=== PATIENT | female | born 1990 | race Native Hawaiian/Other Pacific Islander ===

== ENCOUNTER 2017-12-13 14:20 | Emergency (ER) | payer OTHER ==
[2017-12-13 14:26] VITALS: BP 125/78; PULSE 93; RESP 16; TEMP 98.9; O2SAT 99
--- NOTE | 2017-12-13 15:07 | ED PDOC ---
HPI: Female Pain Time Seen by Provider: 12/13/17 14:47 Chief Complaint (Nursing): Female Genitourinary History Per: Patient, Family Onset/Duration Of Symptoms: Days (1) Current Symptoms Are (Timing): Still Present Severity: Mild Pain Scale Rating Of: 2 Quality Of Discomfort: Cramping Additional Complaint(s): Vaginal spotting assoc with lower abd cramping since noon today. Approx 11 weeks Abnormal Vaginal Bleeding: Yes Past Medical History Vital Signs: Last Vital Signs Temp 98.9 F 12/13/17 14:23 Pulse 93 H 12/13/17 14:23 Resp 16 12/13/17 14:23 BP 125/78 12/13/17 14:23 Pulse Ox 99 12/13/17 14:23 - Medical History PMH: No Chronic Diseases - Family History Family History: States: Unknown Family Hx - Allergies Allergies/Adverse Reactions: Allergies Allergy/AdvReac Type Severity Reaction Status Date / Time No Known Allergies Allergy Verified 12/13/17 14:23 Review of Systems Gastrointestinal: Positive for: Abdominal Pain Genitourinary Female: Positive for: Vaginal Bleeding Physical Exam - Physical Exam Appears: Positive for: Non-toxic, No Acute Distress Skin: Positive for: Normal Color, Warm, DRY Gastrointestinal/Abdominal: Positive for: Bowel Sounds, Soft. Negative for: Tenderness Pelvic Exam: Positive for: External Exam Normal, Blood (scant), Other (Cervix closed). Negative for: Tender Adnexa, Tender Uterus - Laboratory Results Result Diagrams: 12/13/17 15:30 - ECG O2 Sat by Pulse Oximetry: 99 Disposition - Clinical Impression Clinical Impression: Threatened miscarriage - Patient ED Disposition Is Patient to be Admitted: No Counseled Patient/Family Regarding: Studies Performed, Diagnosis, Need For Followup - Disposition [facility] Disposition: Routine/Home Disposition Time: 16:59 Condition: FAIR Instructions: Threatened Miscarriage Forms: [employer] (Ethiopian)
[2017-12-13 15:58] LABS: BASO % 0.4 % (0.0-2.0); EOS # 0.1 K/uL (0.0-0.7); HEMOGLOBIN 11.4 g/dL (12.0-16.0); LYMPH # 1.8 K/uL (1.0-4.3); LYMPH % 24.5 % (20.0-40.0); MEAN CELL VOLUME 91.5 fl (81.0-99.0); MEAN CORPUSCULAR HEMOGLOBIN 31.4 pg (27.0-31.0); MEAN CORPUSCULAR HGB CONC 34.3 g/dL (33.0-37.0); MEAN PLATELET VOLUME 9.2 fl (7.2-11.7); MONO # 0.6 K/uL (0.0-0.8); MONO % 7.6 % (0.0-10.0); NEUT # 4.8 K/uL (1.8-7.0); NEUT % 66.5 % (50.0-75.0); RBC 3.64 Mil/uL (3.80-5.20); WHITE BLOOD COUNT 7.3 K/uL (4.8-10.8)
--- NOTE | 2017-12-13 17:18 | US ---
PROCEDURE: OB Pelvic Ultrasound TECHNIQUE: Transvaginal pelvic ultrasound was performed for evaluation no first-trimester . HISTORY: r/o ectopic,spotting cramping for 24 hours. Last menstrual period is reported 09/22/2017 suggesting gestation of 11 weeks 5 days. COMPARISON: None available. FINDINGS: UTERUS: A single viable intrauterine gestation is identified in variable lie with a posterior developing placenta but no evidence of placental abruption although marginal previa suggested the inferior margins of the stent appear to abut the internal cervical os in multiple views. No discrete myometrial lesion is appreciated. The following mean parameters were obtained: Mean gestational sac size 4.9 cm corresponds to 10 weeks 4 days. Fowler-rump length mean 4.3 cm corresponds to 11 weeks 1 day. Biparietal diameter 1 point 6 cm corresponds to 12 weeks 2 days. Femur length 0.8 cm corresponds to 12 weeks 2 days. Average ultrasonic age considered of weeks 1 day given crown-rump length mean. Uterus measures 8.1 x 8.8 x 7.3 cm cm. Normal in size and appearance. CERVIX: Measures 3.03 cm. Long and closed. Marginal previa identified as discussed above. RIGHT OVARY: Measures 2.9 x 2.2 x 1.8 cm. No mass lesion. Normal flow. LEFT OVARY: Measures 2.9 x 1.9 x 1.8 cm. No solid mass. Normal flow. FREE FLUID: None. OTHER FINDINGS: None. IMPRESSION: A single viable intrauterine gestation is identified diffuse cardiac activity 182 beats per minute an average ultrasonic age of 11 weeks 1 day based on CRL. Marginal previa is noted. Clinical and sonographic follow-up are advised. No placental abruption. No ectopic gestation evident. Findings discussed with Dr. Bocanegra 12/13/2017 5:15 p.m. with written down read back verification.
== END 2017-12-13 17:12 | disposition home or self-care (01) ==
LOC: H.ER 14:20
DX: O20.0 Threatened abortion (principal); Z3A.11 11 weeks gestation of pregnancy

== ENCOUNTER 2018-05-24 10:08 | Emergency (ER) | payer BC, OTHER ==
--- NOTE | 2018-05-24 14:26 | US ---
Date of service: 05/24/2018 PROCEDURE: Limited obstetrical ultrasound examination HISTORY: Decreased movement COMPARISON: 12/13/2017 TECHNIQUE: Transabdominal FINDINGS: Limited examination was requested for biophysical profile examination. There is a single live intrauterine gestation in cephalic presentation. The heart rate is 157 beats per minute. A normal quantity of amniotic fluid is visualized. The ZULMA is 12.3 cm. A posterior placenta is identified. There is no evidence of placenta previa. The cervix is closed and measures 3.7 cm in length. Limited biophysical profile examination yields a score of 8 out of 8. IMPRESSION: Biophysical profile score is 8 out of 8. Cervix closed. heart rate 157 beats per minute.
[2018-05-24 19:17] VITALS: BP 102/61; PULSE 77; RESP 18; TEMP 98.6; O2SAT 99
--- NOTE | 2018-05-24 22:32 | OBHP ---
Datetime: 05/24/2018 12:21 IP Adm Impression: , intrauterine ; No Active Labor; Intact Membranes IP Admit Plan: Observation/Evaluation Admit Comment, IP Provider: Pt is a 27 yo F 34.5wk, CEHY 06/30/18 based on LMP 09/23/17. Came to [facility] due to decreased movements since Monday. Pt states she does feel some movement. Denies vaginal bleeding, contractions, fevers, chills, chest pain, SOB, nausea, vomiting, diarrhea, c onstipation or dysuria. PNP: Dr. Adame PNL: Pending from [facility] Hx: At 8 weeks had bleeding which resolved- denies complications with placenta, March was t old decreased weight also told it resolved C section 2013- due to failure to progress [employer] Hx: Denies abnormal pap smears, Denies other STI's PNL: GBS unknown, ABO: O +, others unremarkable PMHx: None Meds: Prenatals Allergies: NKDA Surg Hx: C section-2013 Fam Hx: None Social Hx: Denies smoking, EtOH, Drug use PE: General: pleasant, in no acute distress HEENT: normocephalic, EOMI Heart: no murmurs, regular rate and rhythm, S1, S2 normal. Lungs: clear to auscultation bilaterally, no wheezing , rales or rhonchi Abdomen: gravid Extremities: no edema Speculum- not performed heart rate -150's 15x15 accelerations category 1 A/P: Pt is a 27 yo F 34.5wk, CHEY 06/30/18 based on LMP 09/23/17. Came to [facility] due to decreased f etal movements since Monday. -Continue to monitor -BPP U/S- due to decreased movement- Cervix closed, placenta posterior, no evidence of previ a, BPP 8/8, ZULMA 12.3 -Monitor heart rate (150's) Case reviewed and discussed with Attending -Marsha Salinas- PGY1 Addendum: I saw and examined patient up presentation. NST reactive. Biophysical profile 8 out of 8. Patient discharged home with labor precautions. Patient will follow up in office as already scheduled . [place] Pelvic Type - PN: Adequate Extremities - PN: Normal Abdomen - PN: Normal Back - PN: Not Done Breast - PN: Not Done Lungs - PN: Normal Heart - PN: Normal Thyroid - PN: Not Done Neurologic - PN: Normal HEENT - PN: Normal General - PN: Normal FHR - Baseline A Provider: 150 Membranes, Provider: Intact Pool Provider: Negative EGA AdmitDate IP: 34.5 Vital Signs Provider: Reviewed; Within Normal Limits IP Chief Complaint: Decreased movement NICHD Variability Prov Fetus A: Moderate 6-25bpm NICHD Accel Fetus A IP Provider: 15X15 FHR Category Provider Fetus A: Category I NICHD Decel Fetus A IP Provider: None Dilatation, Provider: 0 Genitourinary Exam: Not Done DTRs - PN: Not Done
== END 2018-05-24 15:05 | disposition home or self-care (01) ==
LOC: H.EROB2 10:08 → H.EROB 10:30 → H.EROB2 15:05
DX: O36.8130 Decreased fetal movements, third trimester, not applicable or unspecified (principal); Z3A.34 34 weeks gestation of pregnancy; Z87.59 Personal history of other complications of pregnancy, childbirth and the puerperium

== ENCOUNTER 2018-06-04 13:44 | Emergency (ER) | payer BC ==
--- NOTE | 2018-06-04 16:11 | OBHP ---
Datetime: 06/04/2018 15:14 IP Adm Impression: , intrauterine IP Admit Plan: Observation/Evaluation; Discharge home Admit Comment, IP Provider: 27 y/o @ 36.2wks was sent after being found to have ZULMA of 7.6cm. S he denied any vb, ctx, loss of fluid, f/c/n/v/, cp or shortness of breath. PNP is Dr. Adame. Next appointment is 06/11/2018. OBGYNhx: x 1 PMH: denies Meds: PNV Allergies: NKA Surghx: Sochx: denies etOH, cigarettee or elicit drug use ROS: all other systems reviewed and negative VS: 123/83, spo2-99% Gen: no grimacing breathing comfortably Cardio: s1s2 no murmurs Lungs: cta b/l Abd: Gravid, BS + Pelvic: speculum- no pooling, nitrazine neg; closed _ high A/P: 27 y/o @ 36.2wks was sent after being found to have ZULMA of 7.6cm. -rupture of membrane ruled out with no pooling visualized _ neg nitrazine test -discharge home Patient seen and examined with Dr. Krissy Pineda, , PGY-1 OB Hospialist Addendum: 27 yo w/ a h/o c/s, at 36+2 wks, sent from [facility] u/s for ZULMA 7.6 cm for evaluation of ruptured membranes. Spec: no pool, nitrazine neg, ferning neg. FHT reactive. No evidence of ruptured membranes. Pt discharged home and has an appoint w/ [facility] u/ s on Mon., 06/11/2018. (ES) Extremities - PN: Normal Abdomen - PN: Normal Lungs - PN: Normal Heart - PN: Normal General - PN: Normal FHR - Baseline A Provider: 140's Membranes, Provider: Intact Pool Provider: Negative Nitrazine Provider: Negative Ferning Provider: Negative EGA AdmitDate IP: 36.2 Vital Signs Provider: Reviewed IP Chief Complaint: Suspected ruptured membranes NICHD Variability Prov Fetus A: Moderate 6-25bpm NICHD Accel Fetus A IP Provider: 15X15 FHR Category Provider Fetus A: Category I NICHD Decel Fetus A IP Provider: None Dilatation, Provider: 0 Effacement, Provider: 0 Station, Provider: -3
--- NOTE | 2018-06-04 16:11 | OBDCSUM ---
Datetime: 06/04/2018 15:40 Discharged to, Provider: Home Follow up at, Provider: Disch Instr Activity: Normal activity Disch Instr Diet: Regular Discharge Time: 06/04/2018 16:00 Follow up in weeks, Provider: as scheduled 06/05/18 Discharge Diagnosis Prov Other: Suspected ruptured membranes
--- NOTE | 2018-06-04 16:53 | OBHP ---
Datetime: 06/04/2018 15:14 Admit Comment, IP Provider: 27 y/o @ 36.2wks was sent after being found to have ZULMA of 7.6cm. S he denied any vb, ctx, loss of fluid, f/c/n/v/, cp or shortness of breath. PNP is Dr. Adame. Next appointment is 06/11/2018. OBGYNhx: x 1 PMH: denies Meds: PNV Allergies: NKA Surghx: Sochx: denies etOH, cigarettee or elicit drug use ROS: all other systems reviewed and negative VS: 123/83, spo2-99% Gen: no grimacing breathing comfortably Cardio: s1s2 no murmurs Lungs: cta b/l Abd: Gravid, BS + Pelvic: speculum- no pooling, nitrazine neg; closed _ high A/P: 27 y/o @ 36.2wks was sent after being found to have ZULMA of 7.6cm. -rupture of membrane ruled out with no pooling visualized _ neg nitrazine test -discharge home Patient seen and examined with Dr. Krissy Pineda, , PGY-1 OB Hospialist Addendum: Pt seen and examined by me. Agree w/ above. 27 yo w/ a h/o c/s, at 36+2 wks, sent from [facility] u/s for ZULMA 7.6 cm for evaluation of ruptured membranes. Spec: no pool, n itrazine neg, ferning neg. FHT reactive. No evidence of ruptured membranes. Pt discharged home and has an appoint w/ [facility] u/ s on Mon., 06/11/2018. (ES)
[2018-06-05 02:04] VITALS: BP 108/65; PULSE 77; RESP 18; TEMP 98.8; O2SAT 98
== END 2018-06-04 16:00 | disposition home or self-care (01) ==
LOC: H.EROB2 13:44
DX: O34.63 Maternal care for abnormality of vagina, third trimester (principal); N89.8 Other specified noninflammatory disorders of vagina; Z3A.36 36 weeks gestation of pregnancy; Z87.59 Personal history of other complications of pregnancy, childbirth and the puerperium

== ENCOUNTER → 2018-06-24 | Emergency (ER) | payer BC ==
[~2018-06-24] MED LIST: Lactated Ringer's 1,000 ML IV ONE; OXYTOCIN/0.9 % NS 20 UNIT/1,000 ML BAG IV SCH; Triamcinolone Acetonide 40 mg/mL Inj ONE; ceFAZolin 2 GM in Sodium Chloride 0.9% 100 ML IVPB ONE; ceFAZolin IV 2 gm in Dextrose 2 GM/50 ML BAG IVPB ONE
--- NOTE | 2018-06-24 15:28 | OBDCSUM ---
Datetime: 06/24/2018 14:47 Discharged to, Provider: Home Follow up at, Provider: Felix Duval [facility] Disch Instr Activity: Normal activity Disch Instr Diet: Regular Discharge Instructions, Provider: Routine instructions given Discharge Time: 06/24/2018 14:48 Follow up in weeks, Provider: tomorrow, 2017 Disch Referrals: None Contraception discussed, Prov: Yes Discharge Diagnosis Prov Other: false labor
--- NOTE | 2018-06-24 15:29 | OBHP ---
Datetime: 06/24/2018 14:25 IP Adm Impression: Term, intrauterine ; No Active Labor; Intact Membranes IP Admit Plan: Observation/Evaluation; Discharge home Admit Comment, IP Provider: Pt is a 27 yo F 39.1wk, CHEY 06/30/18 based on LMP 09/23/17. Came to [facility] due to a small amount of vaginal pink spotting 3 times since this AM, pt states that it elmira nues lightly, this had happened one time previously in November and resolved after 1 week of bed rest. Pt reports good movement, occasional contractions every few hours, mild diarrhea for 2 days. Pt is scheduled for a C section tomorrow at 6PM with Dr. Adame, Pt and want to discuss risks a nd benefits of possible . Denies fevers, chills, headaches, blurry vision, chest pain, SOB, nause a, vomiting, constipation or dysuria. PNP: Dr. Adame PNL: ABO: O+, TDAP 04/23/18, PPD and GBS reported normal, others unremarkable OB Hx: November- 8 weeks had bleeding which resolved with bedrest, denies complications with placenta C section 2013- due to failure to progress/drop in heart rate [place] Hx: Denies abnormal pap smears, Denies other STI's PMHx: None Meds: Prenatals Allergies: NKDA Surg Hx: C section-2013 Fam Hx: None Social Hx: Denies smoking, EtOH, Drug use PE: General: pleasant, in no acute distress HEENT:NCAT, EOMI Heart: no murmurs, regular rate and rhythm, S1, S2 normal. Lungs: clear to auscultation bilaterally, no wheezing , rales or rhonchi Abdomen: gravid, soft, nontender to palpation, Transverse scar Extremities: no edema Bimanual- Fingertip dilated, 50% effaced, spotting pink mucous on glove heart rate -150's, moderate variability, 15x15 accelerations category 1 A/P: Pt is a 27 yo F 39.1wk, CHEY 06/30/18 based on LMP 09/23/17. Came to [facility] due to vaginal spo tting pink mucous 3 times since this morning -Observe in OB ED -Monitor heart rate 150's moderate variability, 15x15 accelerations category 1 -Bimanual-fingertip dilated, 50% effaced -Discussed risks and benefits for with pt, including 1% risk of uterine rupture, increased ri sk for NICU stay, possible resultant C section, complications such as fever, transfusion, as well as decreased recovery time if successful the patient and wish to talk more about it and make a d ecision at a later time -Told pt not to eat or drink anything after 10AM tomorrow and to be here at 4pm for scheduled sect ion at 6pm -Gave ER precautions if increased bleeding, LOF, decreased movement come back to ED Case reviewed and discussed with Attending -Marsha Salinas- PGY1 Addendum by Dr. Estrada: I have evalauted the patient independently and I agree with the above Pelvic Type - PN: Adequate Extremities - PN: Normal Abdomen - PN: Normal Back - PN: Not Done Breast - PN: Not Done Lungs - PN: Normal Heart - PN: Normal Thyroid - PN: Not Done Neurologic - PN: Not Done HEENT - PN: Normal FHR - Baseline A Provider: 150 Membranes, Provider: Intact Comments, ACOG Physical Exam: Bimanual- Fingertip dilated, 50% effaced, spotting pink mucous on glov e Pool Provider: Negative IP Hx Assessment: The History has been Reviewed and is Current EGA AdmitDate IP: 39.1 Vital Signs Provider: Reviewed; Within Normal Limits IP Chief Complaint: Vaginal bleeding NICHD Variability Prov Fetus A: Moderate 6-25bpm NICHD Accel Fetus A IP Provider: 15X15 FHR Category Provider Fetus A: Category I NICHD Decel Fetus A IP Provider: None Dilatation, Provider: >1 Effacement, Provider: 50 Genitourinary Exam: Normal DTRs - PN: Not Done
[2018-06-25 16:30] VITALS: BMI 19.8
== END | disposition home or self-care (01) ==
LOC: H.EROB2 13:59
DX: O26.853 Spotting complicating pregnancy, third trimester (principal); Z3A.39 39 weeks gestation of pregnancy; O47.1 False labor at or after 37 completed weeks of gestation

== ENCOUNTER 2018-06-25 16:40 | Inpatient (IN) | payer BC ==
[2018-06-25] MEDS ORDERED: ceFAZolin 2 GM in Sodium Chloride 0.9% 100 ML IVPB ONE (17:02)
[2018-06-25 17:03] VITALS: BMI 25.5
[2018-06-25] MEDS ORDERED: OXYTOCIN/0.9 % NS 20 UNIT/1,000 ML BAG IV SCH (17:45)
[2018-06-25] MEDS: Lactated Ringer's 1,000 ML IV ONE ×2 (17:45→18:48)
[2018-06-25 18:29] LABS: BASO % 0.5 % (0.0-2.0); EOS # 0.1 K/uL (0.0-0.7); EOS % 0.8 % (0.0-4.0); HEMOGLOBIN 12.6 g/dL (12.0-16.0); LYMPH # 1.8 K/uL (1.0-4.3); LYMPH % 21.2 % (20.0-40.0); MEAN CELL VOLUME 95.9 fl (81.0-99.0); MEAN CORPUSCULAR HEMOGLOBIN 32.5 pg (27.0-31.0); MEAN CORPUSCULAR HGB CONC 33.9 g/dL (33.0-37.0); MEAN PLATELET VOLUME 9.5 fl (7.2-11.7); MONO # 0.6 K/uL (0.0-0.8); MONO % 7.6 % (0.0-10.0); NEUT # 5.8 K/uL (1.8-7.0); NEUT % 69.9 % (50.0-75.0); NRBC % 0.1 % (0.0-0.0); RBC 3.88 Mil/uL (3.80-5.20); RED CELL DISTRIBUTION WIDTH 13.8 % (11.5-14.5); WHITE BLOOD COUNT 8.3 K/uL (4.8-10.8)
[2018-06-25] MEDS ORDERED: Morphine 1 mg/ml preservative-free Inj(Duramorph) ONE (19:05)
[2018-06-25] MEDS ORDERED: Triamcinolone Acetonide 40 mg/mL Inj IM ONE (19:12)
--- NOTE | 2018-06-25 19:18 | OBDS ---
MATERNAL INFORMATION Delivery Anesthesia: Spinal Provider Comments: see operative report LABOR SUMMARY EDC: 06/30/2018 00:00 No. Babies in Womb: 1 Attempted: No Labor Anesthesia: Intrathecal LABOR INFORMATION Group B Beta Strep: Negative
--- NOTE | 2018-06-25 19:20 | OBADHP ---
Datetime: 06/25/2018 18:46 Admit Comment, IP Provider: HPI: Christos is a 27 yo at 39.2 here for scheduled elective repeat C -section. CHEY 06/30/18 based on LMP of 12/04/13. Denies ctx, loss of fluid or vaginal bleeding. Report ing good movement. Problems Denies Past Pregnancies G1: 2013, full term delivery via unplanned , 7lbs PMH Denies PSH Medications PNV Allergies NKDA Social Denies tobacco, alcohol or drug use during this OBJECTIVE See exam section labs: O+, Hep B neg, HIV neg, RPR neg, GTT 85 ASSESSMENT/PLAN: 27 yo at 39.2 here for scheduled elective repeat - Initiate protocol, 2g Ancef - Discussed risks/benefits/alternatives and patient consented for surgery Coleen Quigley MD OB Fellow Patient was seen with the resident I agree with the note Abdomen - PN: Normal Heart - PN: Normal HEENT - PN: Normal General - PN: Normal Presentation-Admit: Vertex IP Fetus A Comments: Reactive NST FHR - Baseline A Provider: 150 Gestation - Est Wks by US: 39.2 Vital Signs Provider: Reviewed; Within Normal Limits IP Chief Complaint: Scheduled Section NICHD Variability Prov Fetus A: Moderate 6-25bpm NICHD Accel Fetus A IP Provider: 15X15 Genitourinary Exam: Normal EGA AdmitDate IP: 39.2 IP Adm Impression: Term, intrauterine IP Admit Plan: Admit to unit; Initiate Section protocol Datetime: 06/24/2018 14:25 Pelvic Type - PN: Adequate Extremities - PN: Normal Back - PN: Not Done Breast - PN: Not Done Lungs - PN: Normal Thyroid - PN: Not Done Neurologic - PN: Not Done Membranes, Provider: Intact Comments, ACOG Physical Exam: Bimanual- Fingertip dilated, 50% effaced, spotting pink mucous on glov e Pool Provider: Negative IP Hx Assessment: The History has been Reviewed and is Current FHR Category Provider Fetus A: Category I NICHD Decel Fetus A IP Provider: None Dilatation, Provider: >1 Effacement, Provider: 50 DTRs - PN: Not Done Datetime: 06/04/2018 15:14 Nitrazine Provider: Negative Ferning Provider: Negative Station, Provider: -3
[2018-06-25] MEDS ORDERED: Oxycodone/Acetaminophen 5/325 mg Tab PO PRN ×3 (20:50→23:25)
[2018-06-25] MEDS ORDERED: OXYTOCIN/0.9 % NS 20 UNIT/1,000 ML BAG IV ONE (20:50)
[2018-06-25] MEDS ORDERED: DiphenhydrAMINE 50 mg/ml Inj IVP PRN ×2 (20:56→23:25)
[2018-06-25] MEDS ORDERED: Naloxone 0.4 mg/ml Inj (Adult) IVP PRN ×2 (20:56→23:25)
[2018-06-25] MEDS ORDERED: Lactated Ringer's 1,000 ML IV SCH ×2 (21:00→23:25)
[2018-06-25] MEDS ORDERED: ceFAZolin IV 2 gm in Dextrose 2 GM/50 ML BAG IVPB ONE (22:45)
[2018-06-26 06:22] LABS: MEAN CELL VOLUME 96.3 fl (81.0-99.0); MEAN CORPUSCULAR HEMOGLOBIN 32.5 pg (27.0-31.0); MEAN CORPUSCULAR HGB CONC 33.8 g/dL (33.0-37.0); RBC 3.68 Mil/uL (3.80-5.20); RED CELL DISTRIBUTION WIDTH 13.7 % (11.5-14.5); WHITE BLOOD COUNT 14.6 K/uL (4.8-10.8)
--- NOTE | 2018-06-26 08:32 | OP ---
PROCEDURE DATE: 06/25/2018 PREOPERATIVE DIAGNOSIS: History of previous delivery. POSTOPERATIVE DIAGNOSIS: History of previous delivery. PROCEDURE: Repeat low-flap transverse section via Pfannenstiel skin incision. SURGEON: Dr. Mann Adame. PARTS SALES ADVISOR: Dr. Coleen Quigley. TYPE OF ANESTHESIA: Spinal. ANESTHESIA ADMINISTERED BY: Dr. Edgar. IV FLUID INTAKE: The patient received approximately 1200 mL of D5 LR. ESTIMATED BLOOD LOSS: 800 mL. 5511 URINE OUTPUT: The patient put out approximately 900 mL of urine. OPERATIVE FINDINGS: Baby girl, vertex presentation, Apgars 9 and 9, weighing 2830 g. Normal uterus, tubes, and ovaries were identified. DESCRIPTION OF PROCEDURE: After informed consent was obtained, the patient was taken to the operating room where she was given spinal anesthesia. She was then prepped and draped in a normal sterile fashion with the leftward tilt. A Pfannenstiel skin incision was then made with the scalpel and carried down to the underlying layer of fascia with the Bovie. The fascia was nicked from the midline. The fascial incision was then extended laterally with curved Enciso scissors. The superior aspect of the fascial incision was then grasped with Oh clamps, elevated up, and the rectus muscles were dissected off using both sharp and blunt dissections. Attention was then turned to the inferior aspect of the fascial incision, which in a similar fashion, was grasped with Oh clamps, elevated up, and the rectus muscles were dissected off using both sharp and blunt dissections. The rectus muscles were then in the midline. The peritoneum was identified and entered sharply with the Metzenbaum scissors. The peritoneal incision was then extended superiorly and inferiorly with good visualization of the bladder. A bladder blade was inserted. The vesicouterine peritoneum was identified and entered sharply with the Metzenbaum scissors. The incision was then extended laterally. The bladder flap was created digitally. The bladder blade was then inserted and low-transverse incision was then made with the scalpel. The incision was then extended laterally and the baby's head was delivered atraumatically. The nose and mouth were suctioned with DeLee suction trap. The cord was clamped and cut. The was handed off to awaiting pediatricians. The placenta was then removed manually. The uterus was exteriorized and cleared of all clots and debris. The uterine incision was then repaired with 0 Vicryl in a running locked fashion. The second layer of the same suture was used to obtain excellent hemostasis. The uterus was then returned to the abdomen. The abdomen was copiously irrigated. The irrigant was removed with the suction device. Hemostasis was noted. The peritoneum was then closed with 2-0 Vicryl in a running fashion. The muscle was reapproximated with 0 Vicryl in an interrupted fashion. The fascia was closed with 0 Vicryl in a running fashion. The skin was closed with a 4-0 on a Navid needle. All sponge, lap, needle and instrument counts were correct x2. The patient was taken to the recovery room in awake and stable condition. Mann Adame MD
[2018-06-26] MEDS ORDERED: Multivitamin With Minerals Tab PO SCH (09:00)
[2018-06-26] MEDS: Multivitamin With Minerals Tab PO SCH (19:22)
--- NOTE | 2018-06-27 04:15 | OBPPN ---
Datetime: 06/26/2018 20:00 PP Pain Prov: Within normal limits PP Nausea Prov: Denies PP Flatus Prov: Yes PP BM Prov: No PP Breasts Prov: Normal PP Heart Prov: Normal PP Lungs Prov: Normal PP Abdomen/Uterus Prov: Normal PP Lochia Prov: Normal PP Vulva/Perineum Prov: Normal PP CVA Tenderness Prov: Normal PP Extremities Prov: Normal PP C/S Incision Prov: Normal PP Impression Prov: Normal progression PP Plan Prov: Continue present management PP Progress Note Prov: Late entry for POD 1 Pt feels fine; ambulating; tolerating diet H/H A: S/P C/S day 1 PLAN: cont post op care Vital Signs Provider PP: Reviewed; Within Normal Limits
--- NOTE | 2018-06-27 09:04 | OBPPN ---
Datetime: 06/27/2018 09:01 PP Pain Prov: Within normal limits PP Nausea Prov: Denies PP Flatus Prov: Yes PP Breasts Prov: Not Done PP Heart Prov: Normal PP Lungs Prov: Normal PP Abdomen/Uterus Prov: Normal PP Lochia Prov: Not Done PP Vulva/Perineum Prov: Not Done PP CVA Tenderness Prov: Normal PP Extremities Prov: Normal PP C/S Incision Prov: Normal PP Impression Prov: Normal progression PP Plan Prov: Continue present management PP Progress Note Prov: Patient doing well ambulating tolerating diet pain well-controlled Vital signs stable afebrile Uterus firm below the umbilicus Incision clean dry and intact Postoperative day #2 Encourage ambulation, regular diet, analgesias needed, anticipate discharge in a.m. Vital Signs Provider PP: Reviewed
[2018-06-27] MEDS: Multivitamin With Minerals Tab PO SCH (09:21)
[2018-06-27] MEDS: Oxycodone/Acetaminophen 5/325 mg Tab PO PRN ×2 (09:22→22:58)
[2018-06-28] MEDS ORDERED: Influenza Vaccine (5 YR UP)/PF 60 MCG/0.5 ML SYR IM ONE (09:00)
[2018-06-28] MEDS ORDERED: Pneumococcal 23-Valent Vaccine IM ONE (09:00)
[2018-06-28] MEDS: Multivitamin With Minerals Tab PO SCH (09:06)
--- NOTE | 2018-06-28 11:40 | OBDCSUM ---
Datetime: 06/28/2018 10:55 Discharged to, Provider: Home Follow up at, Provider: OB Disch Instr Activity: Normal activity; May be up to bathroom; May be up for meals; May Shower Disch Instr Diet: Regular Discharge Diet restrict Prov: none Discharge Instructions, Provider: Routine instructions given Discharge Diagnosis, Provider: Term Delivered Discharge Time: 06/28/2018 10:56 Follow up in weeks, Provider: 1-2 week for incision , 4-6 weeks vaginal check up Disch Referrals: None Contraception discussed, Prov: Yes Disch Activity Restrictions: Minimize walking; Minimize stair-climbing; No sexual activity; Nothing in vagina - [place], tampons, douche Contraception after Delivery: Undecided
--- NOTE | 2018-06-28 11:40 | OBPPN ---
Datetime: 06/28/2018 11:37 PP Pain Prov: Within normal limits PP Nausea Prov: Denies PP Flatus Prov: Yes PP BM Prov: Yes PP Breasts Prov: Normal PP Heart Prov: Normal PP Lungs Prov: Normal PP Abdomen/Uterus Prov: Normal PP Lochia Prov: Normal PP Vulva/Perineum Prov: Normal PP CVA Tenderness Prov: Normal PP Extremities Prov: Normal PP C/S Incision Prov: Normal PP Progress Prov: Normal PP Comments Phys Exam Prov: Abdomen soft, nontender, nondistended Incision clean, dry, intact Uterus firm, below umbilicus No deep calf tenderness bilaterally PP Impression Prov: Normal progression PP Plan Prov: Discharge PP Progress Note Prov: Postoperative day #3 status post repeat , patient recovering well Patient discharged home with postoperative instructions Patient will follow up in office in 1 week for incision check Discussed plan with patient all patient questions answered. IP PP Procedures: None Vital Signs Provider PP: Reviewed; Within Normal Limits
[2018-06-28 21:52] VITALS: BP 105/70; PULSE 67; RESP 20; TEMP 98.4; O2SAT 96
== END 2018-06-28 16:30 | disposition home or self-care (01) | DRG 788 ==
LOC: H.L&D 17:04 → H.OB/GYN 23:35
PROVIDERS: ADMIT Obstetrics & Gynecology Gynecology; ATTEND Obstetrics & Gynecology Gynecology
PROC: 10D00Z1 Extraction of Products of Conception, Low, Open Approach (ICD-10-PCS; principal; 2018-06-25)
PROC: 4A1HXCZ Monitoring of Products of Conception, Cardiac Rate, External Approach (ICD-10-PCS; 2018-06-25)
DX: O34.211 Maternal care for low transverse scar from previous cesarean delivery (principal); N85.8 Other specified noninflammatory disorders of uterus; Z37.0 Single live birth; Z3A.39 39 weeks gestation of pregnancy